=== PATIENT | male | born 1975 | race Caucasian/White ===

== ENCOUNTER 2021-04-28 16:54 | Emergency (ER) | payer BC, SELFPAY ==
[2021-04-28 17:05] VITALS: BP 114/73; PULSE 97; RESP 18; TEMP 38.6; O2SAT 97; BMI 21.1
[2021-04-28 17:16] VITALS: BP 114/73; PULSE 97; RESP 18; TEMP 37.7; O2SAT 97; BMI 21.2
--- NOTE | 2021-04-28 17:25 | HMH.EDUTC ---
[facility] [place] Impression: Fever in adult Disposition: Home, Self-Care Condition on Discharge: Good Instructions: Acetaminophen (Alternative Therapy), DI for Tooth Extraction, DI for Fever (Symptom) -- Adult Additional Instructions: *Monitor Temp, Over the counter Motrin or Tylenol as directed/as needed Tylenol every 4 hours and Motrin every 6 hours (as long as your family doctor has told you that you can take it) for fever or pain. and straight to ER if unable to lower temp less than 101.0 after medication given Follow up with Dentist if you continue to have pain and fever Take you Medication as you was prescribed Follow up IMMEDIATELY for new or worsening symptoms or no Noticeable improvement over the next 48-72 hours. 911 for difficulty breathing or swallowing You were tested for today for COVID19 your test result should be back in the next 24-48 hours, you may Check your results on the [facility] [employer] health portal If you have trouble logging on there is number on there for you to call for help You was given a handout with instructions for Self Quarantine and Self isolation for while you wait on test results and what to do if they are positive If you are positive the Health Dept will be contacting you also Make sure to take your Vitamins Vit. C Vit D and Zinc if you can take them Referrals: Provider,Referral, MD [Primary Care Provider] - As needed Forms: Work/School Release Time of Disposition: 18:08 Medical Decision Making - Thomas Inquiry Pt receiving controlled substance: No Thomas was queried for this patient: No Vital Signs: 04/28/21 17:05 04/28/21 17:16 Temperature 101.4 F H 99.8 F H Temperature Source Oral Oral Pulse Rate [Left Radial] 97 H 97 H Respiratory Rate 18 18 Blood Pressure [Left Arm] 114/73 114/73 Blood Pressure Mean [Left Arm] 86 86 Blood Pressure Source [Left Arm] Automatic Cuff 02 Sat by Pulse Oximetry 97 97 Oxygen Delivery Method Room Air Orders (Tests/Meds): ED MEDICATIONS Discontinued Medications Generic Name Dose Route Start Last Admin Trade Name Freq PRN Reason Stop Dose Admin Acetaminophen 650 mg 04/28/21 17:26 04/28/21 17:34 Acetaminophen 325mg Tab PO 04/28/21 17:27 650 mg ONCE ONE Administration ORDERS Category Date Time Status Covid-19 Nasal PCR ([facility]) Routine Lab 04/28/21 17:28 Received Medical Decision Narrative: After Tylenol and fever down patient states that he feels much better Discussed transfer back to the ED for further work up and testing and patient declined transfer Patient states that he did not have any preexisting heart issues or valvular problems or replacements and denies history of IV drug use. States that he is feeling much better and wants to go home that he will return if symptoms worsen and call Dentist office first thing in the morning if still having fever on and off States that just got worried so he came in Patient educated on risks and still declined and wanted to go home with no further testing until after the COVID test came back [facility] [place] - General Stated complaint: fever, shaking, body aches, dental surgery Time Seen by Provider: 04/28/21 17:25 Mode of Arrival: Ambulatory Source of Information: Patient Limitations: No Limitations Description of Symptoms (Recalled from Triage Doc. by RN): pt had a broken abcessed tooth pulled today around 1230. he was put on clindamycin. pt comes in c/o fever, chills and body aches. HEENT Symptoms (Recalled from RN notes): No Resp Symptoms (Recalled from RN notes): No Skin Symptoms (Recalled from RN notes): No MS Symptoms (Recalled from RN notes): No Functional Status (Recalled from RN notes): wnl - History of Present Illness Provider Complaint: Patient states that he had a broken abscessed tooth and he went to the dentist today and they pulled it today around 1230 States that they put him on antibiotics States that he has take one of the Ibuprofen and one of the Clindamyci
[2021-04-28 18:13] VITALS: BP 114/73; PULSE 97; RESP 18; TEMP 37.7
== END 2021-04-28 18:14 | disposition home or self-care (01) ==
PROVIDERS: Emergency Provider Nurse Practitioner
DX: K04.7 Periapical abscess without sinus (principal); Z20.822 Contact with and (suspected) exposure to COVID-19
CPT/HCPCS: 99202; C9803; G0463; U0003; U0005

== ENCOUNTER → 2023-03-05 10:20 | Outpatient (CLI) | payer BC, SELFPAY ==
[2023-03-04 18:58] LABS: Alanine Aminotransferase 19 U/L (12-78); Albumin Level 4.7 g/dl (3.5-5.0); Albumin/Globulin Ratio 1.5 (1.1-1.8); Alkaline Phosphatase 101 U/L (38-126); Anion Gap 13.2 mEq/L (5-15); Aspartate Amino Transferase 27 U/L (17-59); Bilirubin,Total 0.5 mg/dl (0.2-1.3); Blood Urea Nitrogen 15 mg/dl (9-20); Calcium 9.5 mg/dl (8.4-10.2); Carbon Dioxide 28 mmol/L (22.0-30.0); Chloride 102 mmol/L (98-107); Chol/HDL Ratio 8.1 (1-3.5); Cholesterol 267 mg/dl (140-200); Estimated Glomerular Filt Rate 104 ml/min (>60); GFR (African American) 125 ML/MIN (>60); Globulin 3.2 g/dL (1.3-3.2); Glucose 112 mg/dl (74-100); HDL Cholesterol 33 mg/dl (40-60); Potassium 4.2 mmoL/L (3.5-5.1); Sodium 139 mmol/L (136-145); Total Protein,Serum 7.9 g/dl (6.3-8.2); Triglycerides 324 mg/dl (30-150); VLDL Cholesterol 65 mg/dL (0-40)
[2023-03-04 18:59] LABS: Hemoglobin A1C 5.4 % (4.0-6.0)
[2023-03-04 19:08] LABS: Direct LDL Cholesterol 146.48 mg/dL (100-129)
[2023-03-04 19:14] LABS: 25-OH Vitamin D, Total 21.7 ng/mL (30-100)
[2023-03-04 19:28] LABS: Prostate Specific Ag Screen 0.4 ng/ml (0.0-4.0); Thyroid Stimulating Hormone 0.72 uIU/mL (0.465-4.68)
[2023-03-04 19:59] LABS: Basophils # 0.1 K/mm3 (0-0.2); Basophils % 0.8 % (0.1-2.0); Eosinophils # 0.2 K/mm3 (0.0-0.4); Eosinophils % 3.2 % (0.1-12.0); Hematocrit 45.4 % (42.0-52.0); Hemoglobin 14.6 g/dL (14.1-18.0); Lymphocytes # 2.5 K/mm3 (0.7-4.5); Lymphocytes % 33.9 % (10-50); Mean Corpuscular HGB Conc 32.2 g/dL (31.8-35.4); Mean Corpuscular Hemoglobin 28.5 pg (27.0-31.2); Mean Corpuscular Volume 88.5 fl (80-94); Mean Platelet Volume 9.1 fl (7.4-10.4); Monocytes # 0.5 K/mm3 (0.1-1.0); Monocytes % 7.1 % (1.7-9.3); Neutrophils # 4.1 K/mm3 (1.8-7.8); Platelet Count 356 K/mm3 (142-424); Red Blood Count 5.12 M/mm3 (4.60-6.20); Red Cell Distribution Width 13.5 % (11.5-17.5); White Blood Count 7.5 K/mm3 (4.8-10.8)
== END ==
PROVIDERS: PCP Student in an Organized Health Care Education/Training Program; Visit Provider Student in an Organized Health Care Education/Training Program
DX: Z00.00 Encounter for general adult medical examination without abnormal findings (principal); Z13.1 Encounter for screening for diabetes mellitus; Z12.5 Encounter for screening for malignant neoplasm of prostate; E55.9 Vitamin D deficiency, unspecified; Z68.21 Body mass index [BMI] 21.0-21.9, adult
CPT/HCPCS: 80053; 80061; 82306; 83036; 84443; 85025; G0103